=== PATIENT | female | born 2000 | race Caucasian/White ===

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

== ENCOUNTER 2023-08-21 23:26 | Emergency (ER) | payer BC, MEDICARE ==
[~2023-08-21] VITALS: Ht 165.1 cm; Wt 85.7 kg
[2023-08-21 23:34] VITALS: BP_SYST 107; PULSE 64; RESP 20; TEMP 98.5; O2SAT 97
[2023-08-21] MEDS ORDERED: KETOROLAC TROMETHAMINE 60 MG/2 ML VIAL IM ONE (23:45)
[2023-08-21] MEDS ORDERED: MORPHINE 4 MG INJ. 4 MG/ML VIAL IM ONE (23:45)
[2023-08-22] MEDS ORDERED: NAPR-1172 PO (01:18)
[2023-08-22 01:22] VITALS: BP_SYST 100; PULSE 59; RESP 16; TEMP 98; O2SAT 97
== END 2023-08-22 01:22 | disposition home or self-care (01) ==
LOC: SED 23:26
DX: M54.31 Sciatica, right side (principal); M54.50 Low back pain, unspecified; Z79.899 Other long term (current) drug therapy
CPT/HCPCS: 99284; 96372; J1885; J2270